=== PATIENT | male | born 1955 | race Caucasian/White ===

== ENCOUNTER 2016-05-16 18:54 | Emergency (ER) | payer OTHER ==
[~2016-05-16] VITALS: Ht 180.3 cm; Wt 86.4 kg
[~2016-05-16 18:54] MED LIST: ALBU8.5H2 INHALATION; ASPI325T32 PO; BUDE10.2 INHALATION; CARV3.122 PO; FURO40TA4 PO; LEVO125T6 PO; LISI-571 PO; OMEP20TA86 PO; POTA-62 PO; RES15 PO; RISP3TAB3 PO; SERT100T PO; SPIR25TA PO
[2016-05-16 19:02] VITALS: BP 133/90; PULSE 101; RESP 20; O2SAT 97
--- NOTE | 2016-05-16 19:18 | ED.REPORT ---
HPI-General Illness Date of Service May 16, 2016 ED Provider: Alexandr Hernandez MD Pt is a 60 y/o male w/ a hx of COPD, CHF, HTN, LV cardiomyopathy, pulmonary HTN , Hep C, presenting to the ED via EMS from [facility] c/o dyspnea on exertion and chest discomfort onset 3 days ago. Lab studies notable for positive d-dimer. Due to CT scanner problems he was sent here for CTA of the chest to rule out PE. Additional lab studies included CBC which showed no leukocytosis and HCT of 50.1. INR of 1. BNP mildly elevated at 1160. CMP notable for good kidney function with BUN of 16 and creatinine of 1. No significant electrolyte abnormalities. Mildly elevated transaminases. Negative troponin. He c/o associated nausea, lightheadedness on exertion, generalized weakness, fatigue, syncopal episode with face injury 2 days ago after standing up. He is scheduled for an echocardiogram tomorrow. Civil Cad Designer: Teodoro Nursing Notes Stated Complaint: NEAR SYNCOPE Chief Complaint: Dysrhythmia/Cardiac Nursing Notes Reviewed: Yes Allergies: Coded Allergies: lorazepam (Verified Adverse Reaction, Unknown, 05/16/16) Patient reported. Scheduled Albuterol HFA (Proair HFA) 8.5 Gm Hfa.aer.ad 2 PUFFS INHALATION Q4H Aspirin (Aspirin) 325 Mg Tablet 325 MG PO DAILY Budesonide/Formoterol 80-4.5 mcg Inh (Symbicort 80-4.5 mcg Inh) 120 Puff Inhaler 1 PUFF INHALATION BID Carvedilol (Carvedilol) 3.125 Mg Tablet 3.125 MG PO BID Furosemide (Furosemide) 40 Mg Tablet 40 MG PO DAILY Levothyroxine (Levothyroxine) 125 Mcg Tablet 125 MCG PO DAILY Lisinopril (Lisinopril) 5 Mg Tablet 2.5 MG PO BID Take 1/2 tablet twice a day by mouth. Omeprazole (Omeprazole) 20 Mg Tablet.dr 20 MG PO HS Potassium Chloride ER (Potassium Chloride ER) 20 Meq Tablet.er 20 MEQ PO DAILY TAKE WITH FOOD Risperidone (Risperidone) 3 Mg Tablet 3 MG PO HS Sertraline HCl (Zoloft) 100 Mg Tablet 100 MG PO DAILY Spironolactone (Aldactone) 25 Mg Tablet 12.5 MG PO DAILY Take 1/2 tablet once daily by mouth. Scheduled PRN Temazepam (Temazepam) 15 Mg Capsule 15 MG PO HS PRN PRN For Insomnia General Time Seen by MD: 18:59 Chief Complaint Other (Dyspnea on exertion) Hx Obtained From: Patient, EMS Arrived By: Ambulance Sudden in Onset?: No Onset Occurred: 3 days ago Symptom Duration: Since onset Location: : Chest Quality: Aching Severity: Current: Mild Severity: Maximum: Mild Past Medical History Past Medical History Hypothyroid CHF - EF 30% HTN Pulmonary HTN Hep C COPD GERD Arthritis Elevated PSA Depression Anxiety Hx Suicidal ideations Falls PVD Past Surgical History Right shoulder x2 Smoking History Former Smoker Social History 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 Physical Exam Vital Signs Vital Signs Date Time Temp Pulse Resp B/P Pulse Ox O2 Delivery O2 Flow Rate FiO2 05/16/16 21:33 36.6 93 22 142/86 93 Room Air 05/16/16 19:55 94 18 136/84 97 Room Air 05/16/16 19:02 36.4 101 20 133/90 97 Room Air Initial VS: Reviewed, Vital signs abnormal Head / Eyes: Atraumatic, Normocephalic, PERRL ENT: Mucous membranes moist, Conjunctiva normal, No scleral icterus Neck: Supple, Full range of motion Respiratory: Breath sounds normal, Clear to auscultation, No respiratory distress Abdomen / GI: Soft, Non-tender, No distention Extremities: Vascular intact, Neuro intact, No swelling, No tenderness Skin: Warm, Dry, No cyanosis Neurologic: Alert, Oriented, Nonfocal Psychiatric: Mood/affect normal General/Constitutional: Awake, Alert, No acute distress, Cooperative, Not toxic appearing Distress / Hydration: Positive: Dehydration moderate ENT: Atraumatic, Airway patent Mouth: Positive: Mucous membranes dry (with dry cracked lips) Cardiovascular: Regular rhythm, Heart sounds NL, No gallop, No murmurs, No rubs , Cap refill not delayed, Peripheral circulation NL Heart Rate / Rhythm: Positive: Tachycardia (borderline) Interpretation & Diagnostics Lab Results Interpretation Test 05/16/16 19:25 05/16/16 19:33 Troponin T < 0.010ug/L (0.0-0.011) Hold Nova Top Tube Received (Received) Hold Urine Received (Received) ECG Interpretation ECG Interpretation: Sinus rhythm rate 94 LAD Prolonged QT interval Borderline T wave flattening in anteroseptal leads When compared to prior date 05/25/15 - T wave changes are more pronounced Time: 20:11 Interpreted by: ED physician Normal ECG Interpretation: No acute ischemic changes CT Chest Interpretation IMPRESSION: No evidence for pulmonary embolus. No acute disease is seen in the CT scan of the chest. Dictated by: Geovani Nguyen M.D. on 05/16/2016 at 19:58 Approved by: Geovani Nguyen M.D. on 05/16/2016 at 20:01 Study type: CT pulm angiogram Interpretation / Wet Read by: Interpret - Radiologist Re-Eval/Medical Decision Med Decision/Clinical Course Pt is a 60 y/o male w/ a hx of COPD, CHF, HTN, LV cardiomyopathy, pulmonary HTN , Hep C, presenting to the ED via EMS from [facility] c/o dyspnea on exertion and chest discomfort onset 3 days ago. Lab studies notable for positive d-dimer. Due to CT scanner problems he was sent here for CTA of the chest to rule out PE. Additional lab studies included CBC which showed no leukocytosis and HCT of 50.1. INR of 1. BNP mildly elevated at 1160. CMP notable for good kidney function with BUN of 16 and creatinine of 1. No significant electrolyte abnormalities. Mildly elevated transaminases. Negative troponin. He c/o associated nausea, lightheadedness on exertion, generalized weakness, fatigue, syncopal episode with face injury 2 days ago after standing up. He is scheduled for an echocardiogram tomorrow. EKG repeated here in the emergency department and interpreted per myself as documented above. No significant change from priors. Repeat troponin here in the emergency department today remains within normal limits and is not elevated from prior obtained [facility] earlier today. Orthostatic vital signs positive. Most recent echocardiogram dated 05/27/15 demonstrated: moderately dilated left ventricle with EF of 25-30% and associated severe hypokinesis of the LV. Borderline RV enlargement. Mildly reduced systolic function of the RV. Severe mitral regurgitation. Based upon patient's workup prior to arrival CT angiography of the chest was obtained and demonstrated no evidence of pulmonary embolism or other acute cardiopulmonary process. Patient appeared quite dehydrated and was treated with 500 mL saline bolus. The emergency department given his history of underlying congestive heart failure. At this time serial EKGs and serial troponins are reassuring against acute coronary syndrome. No evidence of significant arrhythmia on telemetry monitoring here today in the emergency room. Patient convincing for pulmonary embolism and CT angiography essentially rules out. I suspect his presentation is related to dehydration in the setting of diuretic use and further compounded by his underlying congestive heart failure and pulmonary hypertension as well as valvular pathology. Generally I would admit this patient for emergent echocardiogram however he already has an echo scheduled for tomorrow. I discussed the patient in depth with cardiology and they feel that he is appropriate for outpatient echocardiogram tomorrow and close clinic follow-up. He remained completely asymptomatic and hemodynamically stable here in the emergency department. Will call his outside repairer special first thing tomorrow morning to arrange for follow-up after his echocardiogram. Follow and return precautions were reviewed in detail and he was discharged in stable condition and he verbalized understanding and agreement with the plan. Time of Eval: 20:19 Patient Status: Condition improved, Moderate relief Re-Evaluation/Progress Note: Pt rechecked. Informed pt of plan for treatment. Pt understands and agrees with plan for treatment. F/U instructions and RTER warnings given. All questions addressed. Consultation : Referral / Consult Name: Riley Jama MD Consulted With: Cardiology Call Returned at: 20:59 Fisher Weir: Agrees with eval, Agrees with plan Note: Make sure he has an echo for tomorrow and make sure he has close follow-up. Agrees with plan for discharge. Counseled Regarding: Diagnosis, Lab results, Need for follow-up, When/why to return to ED Discharge & Departure Primary Impression: Syncope Syncope type: unspecified Qualified Code: R55 - Syncope and collapse Additional Impressions: Dyspnea on exertion Dehydration Congestive heart failure Congestive heart failure type: unspecified congestive heart failure type Congestive heart failure chronicity: unspecified congestive heart failure chronicity Qualified Code: I50.9 - Heart failure, unspecified Pulmonary hypertension Disposition: Home Discharge Condition All VS Reviewed: Yes Condition: Stable Patient Instructions: Congestive Heart Failure (ED), Dehydration (ED) Additional Instructions: Thank you for seeking care at emergency room. It is difficult for us to make definitive diagnoses in the ED but we believe that you are experiencing dehydration related to the diuretics that you have been prescribed. We think that this in combination with medications that you are taking an you are underlying heart problems caused you to pass out earlier. Our primary goal today in the ED was to evaluate you for any immediately life- threatening conditions. Your evaluation was reassuring. I discussed your case with her outside repairer special and he will be having an echocardiogram tomorrow, they will make sure that you get followed up closely in their clinic. Please call them tomorrow morning to arrange for your follow- up. You should return to the ED immediately if you develop recurrent feelings of lightheadedness, lightheadedness with exertion, chest pain, shortness of breath , passing out, fevers, vomiting, cough, shortness of breath, chest pain, lightheadedness, weakness or any other concerning signs or symptoms. Thank you for letting us partake in your care today. Referrals: Eliezer Shepard MD (PCP) Ok Valerio MD Crit Care Except Billable Proc Time Spent: 75-104 minutes Services Performed: Patient management by me, Time spent at bedside, Reviewing test results, Reviewing imaging, Discussing patient care, Documentation in record Scribe Attestation Portions of this note were transcribed by Barber Martell. I, Dr. Hernandez personally performed the history, physical exam and medical decision-making; I reviewed and confirmed the accuracy of the information in the transcribed note. Signed by Boogie Carrillo, 05/16/16 - 1999 copies to: Ok Valerio MD; Eliezer Shepard MD, Beck O MD May 16, 2016 19:18 BARBER MARTELL May 16, 2016 19:24
[2016-05-16 19:55] VITALS: BP 136/84; PULSE 94; RESP 18; O2SAT 97
--- NOTE | 2016-05-16 20:03 | DRSVH ---
PROCEDURE: CT ANGIO CHEST PULMONARY EMBOLISM ([id number]) INDICATIONS: +dimer, concern for PE TECHNIQUE: After the administration of intravenous contrast, 2 mm thick sections acquired from the pulmonary api haley to the posterior costophrenic angles. 3-dimensional maximum intensity projection (MIP) coronal a nd sagittal reformats were then acquired through the thorax. For radiation dose reduction, the follo wing was used: automated exposure control, adjustment of mA and/or kV according to patient size. COMPARISON: None. FINDINGS: Image quality: Excellent. Pulmonary arteries: Pulmonary arteries are normal in size, and demonstrate no intraluminal filling d efects to suggest central pulmonary embolism. Lungs and pleura: Lungs are clear. No pleural effusions or pneumothorax. Central and peripheral ai rways are patent. Mediastinum: Heart size is normal, without pericardial effusion. No mediastinal or hilar adenopathy . Thoracic aorta is normal in caliber and enhancement. Esophagus is normal in caliber, without hiat al hernia. Bones and chest wall: No suspicious bony lesions. Ribs and thoracic spine appear intact throughout. . No axillary or supraclavicular adenopathy. Abdomen: Visualized upper abdominal solid organs appear normal in the early arterial phase of enhanc ement. IMPRESSION: No evidence for pulmonary embolus. No acute disease is seen in the CT scan of the chest. Dictated by: Geovani Nguyen M.D. on 05/16/2016 at 19:58 Approved by: Geovani Nguyen M.D. on 05/16/2016 at 20:01
[2016-05-16 21:33] VITALS: BP 142/86; PULSE 93; RESP 22; O2SAT 93
== END 2016-05-16 21:27 | disposition home or self-care (01) ==
LOC: EDUNIT# 18:54 → SED 18:54 → EDBD 18:54 → SED 21:27
DX: R55 Syncope and collapse (principal); E86.0 Dehydration; I11.0 Hypertensive heart disease with heart failure; I50.9 Heart failure, unspecified; K21.9 Gastro-esophageal reflux disease without esophagitis; Z87.891 Personal history of nicotine dependence; Z79.82 Long term (current) use of aspirin; Z88.8 Allergy status to other drugs, medicaments and biological substances
CPT/HCPCS: 36415; 71275; 84484; 93005; 99285; Q9967